=== PATIENT | female | born 1975 | race Caucasian/White ===

== ENCOUNTER 2019-01-20 07:03 | Day surgery (SDC) | payer BC ==
[2019-01-20] MEDS ORDERED: LIDOCAINE HCL 1% MPF 30 SOL ONE (07:42)
[2019-01-20] MEDS ORDERED: PROPOFOL 500 MG/50 ML EMU IV ONE (07:42)
[2019-01-20 09:30] LABS: BASOPHILS % (AUTO) 1 % (0-3); EOSINOPHILS % (AUTO) 2 % (0-9); HEMATOCRIT 40 % (35-47); HEMOGLOBIN 12.6 gm/dl (12.0-15.5); LYMPHOCYTES % (AUTO) 24.8 % (10-50); MEAN CORPUSCULAR HEMOGLOBIN 28.3 pg (27.0-32.0); MEAN CORPUSCULAR HGB CONC 31.2 gm/dl (32.0-36.0); MEAN CORPUSCULAR VOLUME 91 fL (81-99); MONOCYTES % (AUTO) 5.6 % (0-12); NEUTROPHILS % (AUTO) 66.6 % (37-80)
[2019-01-20 09:35] VITALS: BP 115/70; PULSE 66; RESP 20; TEMP 97.5; O2SAT 100
[2019-01-20 09:52] LABS: BILIRUBIN,TOTAL 0.4 mg/dl (0.2-1.0); CALCIUM 8.9 mg/dl (8.5-10.1); CARBON DIOXIDE 27.3 mEq/L (21-32); CREATININE 0.68 mg/dl (0.60-1.00); POTASSIUM 4.7 mMol/L (3.5-5.1); TOTAL PROTEIN 6.3 gm/dl (6.4-8.2)
[2019-01-20 10:03] LABS: CRP INFLAMMATORY 0.16 mg/dl (0.00-0.33)
== END 2019-01-20 09:33 | disposition home or self-care (01) ==
LOC: SURG 07:03
PROVIDERS: ATTEND Internal Medicine Gastroenterology
DX: R13.10 Dysphagia, unspecified (principal); R10.13 Epigastric pain; K92.1 Melena; K20.0 Eosinophilic esophagitis; R19.7 Diarrhea, unspecified; R11.10 Vomiting, unspecified; K22.2 Esophageal obstruction; K44.9 Diaphragmatic hernia without obstruction or gangrene; L53.8 Other specified erythematous conditions
CPT/HCPCS: 36415; 80053; 82150; 85025; 99001; J2001; J2704

== ENCOUNTER 2019-02-09 10:11 | Day surgery (SDC) | payer BC ==
[2019-02-09] MEDS ORDERED: PROPOFOL 500 MG/50 ML EMU IV ONE (10:41)
[2019-02-09 12:05] VITALS: BP 107/78; PULSE 54; RESP 20; TEMP 97.7; O2SAT 100
== END 2019-02-09 12:25 | disposition home or self-care (01) ==
LOC: SURG 10:11
PROVIDERS: ATTEND Surgery
DX: K62.5 Hemorrhage of anus and rectum (principal); R19.7 Diarrhea, unspecified
CPT/HCPCS: 99001; J2704